=== PATIENT | male | born 1980 | race Caucasian/White ===

== ENCOUNTER 2020-02-13 11:50 | Day surgery (SDC) | payer MEDICAID ==
[2020-02-12 12:03] LABS: COVID AG,FIA SOURCE NASOPHARYNGEAL
[~2020-02-13] VITALS: Ht 172.7 cm; Wt 85.5 kg
[~2020-02-13 11:50] MED LIST: FERR325T22 PO; FOLI-130 PO; PANT40TA54 PO; SODIUM CHLORIDE 0.9% 1,000 ML IV ONE; SODIUM CHLORIDE 0.9% 1,000 ML ONE
[2020-02-13] MEDS ORDERED: LIDOCAINE/PF 2% 5 ML SYRINGE IVP ONE (11:51)
[2020-02-13] MEDS ORDERED: PROPOFOL 1% 20 ML VIAL IVP ONE (11:51)
== END 2020-02-13 15:35 | disposition home or self-care (01) ==
LOC: SURGERY 11:50
PROVIDERS: ATTEND Internal Medicine Gastroenterology
DX: K29.50 Unspecified chronic gastritis without bleeding (principal); B96.81 Helicobacter pylori [H. pylori] as the cause of diseases classified elsewhere; D64.9 Anemia, unspecified; Z79.899 Other long term (current) drug therapy; Z98.890 Other specified postprocedural states; Z20.828 Contact with and (suspected) exposure to other viral communicable diseases
CPT/HCPCS: 43239; 87426; 88305; 88312; 88313; C1769; C9803; J2704; J3490; J7030